=== PATIENT | female | born 1990 | race Caucasian/White ===

== ENCOUNTER 2018-07-22 19:24 | Inpatient (IN) | payer OTHER ==
[~2018-07-22] VITALS: Ht 165.1 cm; Wt 59.3 kg
[~2018-07-22 19:24] MED LIST: IBUP-1222 PO; OXYC-302 PO; PNV1TABL47 PO
[2018-07-22] MEDS ORDERED: SODIUM CHLORIDE 0.9% 1,000ML IVBOLUS ONE ×2 (20:00→21:00)
[2018-07-22 20:15] LABS: BASOPHILS # (AUTO) 0.06 x10^3/uL (0-0.1); BASOPHILS % (AUTO) 0 % (0-1); EOSINOPHILS % (AUTO) 0 % (1-7); LYMPHOCYTES # (AUTO) 1.75 x10^3/uL (1-3.4); LYMPHOCYTES % (AUTO) 10 % (22-44); MD NO; MEAN CORPUSCULAR HEMOGLOBIN 28.4 pg (27.0-34.8); MEAN CORPUSCULAR HGB CONC 34.2 g/dL (32.4-35.8); MEAN PLATELET VOLUME 9.2 fL (7.4-10.4); MONOCYTES # (AUTO) 0.96 x10^3/uL (0.2-0.8); MONOCYTES % (AUTO) 5 % (2-9); NEUTROPHILS # (AUTO) 14.98 x10^3/uL (1.8-6.8); NEUTROPHILS % (AUTO) 84 % (42-75); PLATELET COUNT 271 x10^3/uL (130-400); RED BLOOD COUNT 5.69 x10^6/uL (3.82-5.3); RED CELL DISTRIBUTION WIDTH 12.9 % (9.6-15.2)
[2018-07-22 20:21] LABS: ANION GAP 7 mmol/L (5-15); CALCIUM 9.3 mg/dL (8.5-10.1); CHLORIDE 102 mmol/L (98-107); CREATININE 0.61 mg/dL (0.55-1.02)
[2018-07-22 20:31] LABS: THYROID STIMULATING HORMONE < 0.005 mIU/L (0.358-3.740)
[2018-07-22 20:44] LABS: AMPHETAMINE SCREEN, URINE Negative (Negative); BARBITURATE SCREEN, URINE Negative (Negative); BENZODIAZEPINE SCREEN, URINE Negative (Negative); CANNABINOID SCREEN, URINE Negative (Negative); COCAINE SCREEN, URINE Negative (Negative); METHADONE SCREEN, URINE Negative (Negative); OPIATE SCREEN, URINE Negative (Negative)
[2018-07-22 20:48] LABS: MICROSCOPIC INDICATED
[2018-07-22] MEDS ORDERED: ACETAMINOPHEN 500 MG TABLET ONE (20:58)
[2018-07-22] MEDS ORDERED: ACETAMINOPHEN 500 MG TABLET PO ONE (21:00)
[2018-07-22] MEDS ORDERED: OMNIPAQUE 350 MG/ML, 100ML BOTTLE ONE (21:04)
[2018-07-22] MEDS ORDERED: METOPROLOL 1 MG/ML, 5ML IVPush ONE (21:30)
[2018-07-22] MEDS ORDERED: PROPYLTHIOURACIL 50 MG TABLET PO ONE (21:30)
[2018-07-22] MEDS ORDERED: CEFTRIAXONE 1,000 MG in SODIUM CHLORIDE 0.9% 50 ML IV ONE (21:30)
[2018-07-22] MEDS ORDERED: METOPROLOL TARTRATE 50 MG TABLET PO ONE (21:30)
[2018-07-22 21:43] LABS: CULTURE INDICATED? YES
[2018-07-22] MEDS ORDERED: CEFTRIAXONE PMX 1GM/50ML 50 ML ONE (21:43)
[2018-07-22] MEDS ORDERED: METOPROLOL TARTRATE 25 MG TABLET ONE (21:43)
[2018-07-22] MEDS ORDERED: METOPROLOL 1 MG/ML, 5ML ONE (21:44)
[2018-07-22 21:53] LABS: T4 (THYROXINE) 38.5 mcg/dL (4.8-13.9)
[2018-07-22] MEDS ORDERED: HYDROCORTISONE 100 MG INJ. IVPush ONE (22:00)
[2018-07-22] MEDS ORDERED: CEFTRIAXONE PMX 1GM/50ML 50 ML IV SCH (22:00)
[2018-07-22] MEDS ORDERED: POLYETHYLENE GLYCOL 17 GM PACKET PO PRN (22:30)
[2018-07-22] MEDS ORDERED: morphine SULFATE 10 MG/ML, 1ML IVPush PRN (22:30)
[2018-07-22] MEDS ORDERED: DOCUSATE 100 MG CAPSULE PO PRN (22:30)
[2018-07-22] MEDS ORDERED: ONDANSETRON 2MG/ML, 2ML IVPush PRN (22:30)
[2018-07-22] MEDS: PROPYLTHIOURACIL 50 MG TABLET PO SCH (23:06)
[2018-07-22 23:18] VITALS: BP 121/75
[2018-07-22] MEDS: NS + 20MEQ KCL 1,000 ML IV SCH (23:32)
[2018-07-23 03:00] VITALS: BP 107/64
[2018-07-23 04:27] VITALS: BP 117/70
[2018-07-23] MEDS: PROPYLTHIOURACIL 50 MG TABLET PO SCH ×4 (04:44→22:26)
[2018-07-23 05:48] LABS: BASOPHILS # (AUTO) 0.03 x10^3/uL (0-0.1); BASOPHILS % (AUTO) 0 % (0-1); EOSINOPHILS % (AUTO) 0 % (1-7); LYMPHOCYTES # (AUTO) 2.21 x10^3/uL (1-3.4); LYMPHOCYTES % (AUTO) 19 % (22-44); MD NO; MEAN CORPUSCULAR HEMOGLOBIN 28.4 pg (27.0-34.8); MEAN CORPUSCULAR HGB CONC 34.2 g/dL (32.4-35.8); MEAN CORPUSCULAR VOLUME 82.9 fL (80-100); MEAN PLATELET VOLUME 9.3 fL (7.4-10.4); MONOCYTES # (AUTO) 0.59 x10^3/uL (0.2-0.8); MONOCYTES % (AUTO) 5 % (2-9); NEUTROPHILS # (AUTO) 8.81 x10^3/uL (1.8-6.8); NEUTROPHILS % (AUTO) 76 % (42-75); PLATELET COUNT 224 x10^3/uL (130-400); RED BLOOD COUNT 4.69 x10^6/uL (3.82-5.3); RED CELL DISTRIBUTION WIDTH 13.2 % (9.6-15.2)
[2018-07-23 05:53] LABS: ANION GAP 8 mmol/L (5-15); CALCIUM 8.6 mg/dL (8.5-10.1); CHLORIDE 114 mmol/L (98-107)
[2018-07-23 07:10] VITALS: BP 125/71
[2018-07-23] MEDS ORDERED: METOPROLOL TARTRATE 25 MG TABLET PO SCH (09:00)
[2018-07-23 09:04] LABS: FREE T4 (FREE THYROXINE) 5.13 ng/dL (0.76-1.46)
[2018-07-23 09:05] LABS: THYROID STIMULATING HORMONE < 0.005 mIU/L (0.358-3.740)
[2018-07-23] MEDS: ACETAMINOPHEN 325 MG TABLET PO PRN ×2 (09:34→23:07)
[2018-07-23] MEDS: PROPRANOLOL 60 MG CAP.SA.24H PO SCH (12:42)
[2018-07-23] MEDS: HYDROCORTISONE 100 MG INJ. IVPush SCH ×2 (12:42→20:44)
[2018-07-23 12:56] VITALS: BP 116/71
[2018-07-23 13:03] LABS: ALANINE AMINOTRANSFERASE 24 U/L (12-78); ALBUMIN 3.1 g/dL (3.4-5.0); ANION GAP 7 mmol/L (5-15); BILIRUBIN, DIRECT 0.2 mg/dL (0.1-0.2); CALCIUM 8.8 mg/dL (8.5-10.1); CHLORIDE 113 mmol/L (98-107); CREATININE 0.37 mg/dL (0.55-1.02)
[2018-07-23 13:05] LABS: ALKALINE PHOSPHATASE 151 U/L (45-117); BILIRUBIN,INDIRECT 0.6 mg/dL (0.0-2.0); BILIRUBIN,TOTAL 0.8 mg/dL (0.2-1.0); TOTAL PROTEIN 6.8 g/dL (6.4-8.2)
[2018-07-23] MEDS: NS + 20MEQ KCL 1,000 ML IV SCH (16:15)
[2018-07-23 18:55] VITALS: BP 147/93
[2018-07-23] MEDS: CEFTRIAXONE 1,000 MG in SODIUM CHLORIDE 0.9% 50 ML IV SCH (20:44)
[2018-07-24 00:46] VITALS: BP 138/82
[2018-07-24 04:55] LABS: BASOPHILS # (AUTO) 0.03 x10^3/uL (0-0.1); BASOPHILS % (AUTO) 0 % (0-1); EOSINOPHILS # (AUTO) 0.16 x10^3/uL (0-0.4); EOSINOPHILS % (AUTO) 2 % (1-7); LYMPHOCYTES # (AUTO) 3.71 x10^3/uL (1-3.4); LYMPHOCYTES % (AUTO) 41 % (22-44); MD NO; MEAN CORPUSCULAR HEMOGLOBIN 28.4 pg (27.0-34.8); MEAN CORPUSCULAR HGB CONC 33.9 g/dL (32.4-35.8); MEAN CORPUSCULAR VOLUME 83.7 fL (80-100); MONOCYTES # (AUTO) 0.85 x10^3/uL (0.2-0.8); MONOCYTES % (AUTO) 9 % (2-9); NEUTROPHILS # (AUTO) 4.32 x10^3/uL (1.8-6.8); NEUTROPHILS % (AUTO) 48 % (42-75); PLATELET COUNT 229 x10^3/uL (130-400); RED BLOOD COUNT 4.67 x10^6/uL (3.82-5.3); RED CELL DISTRIBUTION WIDTH 12.9 % (9.6-15.2)
[2018-07-24 05:25] LABS: HCT (SEDRATE) 38.9 % (34.6-47.8)
[2018-07-24] MEDS: HYDROCORTISONE 100 MG INJ. IVPush SCH ×3 (05:33→23:34)
[2018-07-24] MEDS: PROPYLTHIOURACIL 50 MG TABLET PO SCH ×3 (05:34→20:16)
[2018-07-24 06:53] VITALS: BP 146/92
[2018-07-24] MEDS ORDERED: BUPIVACAINE/PF-EPI 0.5% 1:200K ONE (07:05)
[2018-07-24] MEDS: PROPRANOLOL 60 MG CAP.SA.24H PO SCH (09:03)
[2018-07-24] MEDS ORDERED: SCOPOLAMINE PATCH, 1.5MG PATCH.TD72 TD ONE (09:30)
[2018-07-24] MEDS ORDERED: GABAPENTIN 300 MG CAPSULE PO ONE (09:30)
[2018-07-24] MEDS ORDERED: ONDANSETRON ODT 8 MG PO ONE (09:30)
[2018-07-24] MEDS ORDERED: OxyconTIN ER 20 MG TAB.ER PO ONE (09:30)
[2018-07-24] MEDS ORDERED: ACETAMINOPHEN 500 MG TABLET PO ONE (09:30)
[2018-07-24] MEDS ORDERED: MIDAZOLAM 1 MG/ML, 2ML ONE ×2 (09:45→12:05)
[2018-07-24] MEDS ORDERED: FENTANYL PF 100 MCG/2ML ONE ×3 (09:45→11:55)
[2018-07-24] MEDS ORDERED: PROPOFOL 10 MG/ML, 20ML ONE (09:46)
[2018-07-24] MEDS ORDERED: CEFAZOLIN 1,000 MG ONE ×2 (09:47)
[2018-07-24] MEDS ORDERED: WATER-INJECTION,STERILE 10 ML IV ONE (09:47)
[2018-07-24] MEDS ORDERED: ROCURONIUM 10MG/ML,5ML ONE (09:48)
[2018-07-24] MEDS ORDERED: DEXAMETHASONE 4 MG/ML, 1ML ONE ×2 (09:49)
[2018-07-24] MEDS ORDERED: ONDANSETRON 2MG/ML, 2ML ONE (09:49)
[2018-07-24] MEDS ORDERED: SUGAMMADEX 200 MG/2 ML IVPush ONE (10:34)
[2018-07-24 10:56] LABS: HCG UR SG <= 1.005 (1.003-1.030)
[2018-07-24] MEDS ORDERED: HYDROmorphone 1 MG/ML, 1ML IV PRN (11:00)
[2018-07-24] MEDS ORDERED: ONDANSETRON ODT 8 MG PO PRN (11:00)
[2018-07-24] MEDS ORDERED: PROMETHAZINE 12.5 MG SUPP PR PRN (11:00)
[2018-07-24] MEDS ORDERED: MORPHINE SULFATE 4 MG/ML, 1ML IVPush PRN (11:00)
[2018-07-24] MEDS ORDERED: PROMETHAZINE 25 MG/ML, 1ML IV PRN (11:00)
[2018-07-24] MEDS ORDERED: LABETALOL 5MG/ML, 20ML IV PRN (11:00)
[2018-07-24] MEDS ORDERED: hydrALAzine 20 MG/ML, 1ML IV PRN (11:00)
[2018-07-24] MEDS ORDERED: OXYcodone 5 MG/5 ML ORAL.SOL UDC PO PRN (11:00)
[2018-07-24] MEDS ORDERED: MEPERIDINE/PF 25MG/0.5ML IVPush PRN (11:00)
[2018-07-24] MEDS ORDERED: ONDANSETRON 2MG/ML, 2ML IV PRN (11:00)
[2018-07-24] MEDS ORDERED: PROMETHAZINE 25 MG SUPP PR PRN (11:00)
[2018-07-24] MEDS: FENTANYL PF 100 MCG/2ML IV PRN ×2 (11:58→12:31)
[2018-07-24] MEDS ORDERED: morphine SULFATE 10 MG/ML, 1ML IVPush PRN (12:00)
[2018-07-24] MEDS ORDERED: HYDROcodone/APAP 5/325 TABLET PO PRN (12:00)
[2018-07-24] MEDS ORDERED: MIDAZOLAM 1 MG/ML, 2ML IVPush PRN (12:30)
[2018-07-24] MEDS ORDERED: MORPHINE SULFATE 4 MG/ML, 1ML ONE (12:47)
[2018-07-24 14:00] VITALS: BP 134/67
[2018-07-24] MEDS: HYDROcodone/APAP 5/325 TABLET PO PRN (18:11)
[2018-07-24 19:20] VITALS: BP 137/82
[2018-07-24] MEDS: CEFTRIAXONE 1,000 MG in SODIUM CHLORIDE 0.9% 50 ML IV SCH (20:16)
[2018-07-24 21:48] VITALS: BP 126/70
[2018-07-25 00:53] VITALS: BP 127/65
[2018-07-25] MEDS: HYDROcodone/APAP 5/325 TABLET PO PRN ×4 (02:14→21:26)
[2018-07-25] MEDS: PROPYLTHIOURACIL 50 MG TABLET PO SCH ×4 (02:14→20:39)
[2018-07-25 05:32] LABS: BASOPHILS # (AUTO) 0.02 x10^3/uL (0-0.1); BASOPHILS % (AUTO) 0 % (0-1); EOSINOPHILS % (AUTO) 0 % (1-7); LYMPHOCYTES % (AUTO) 15 % (22-44); MD NO; MEAN CORPUSCULAR HEMOGLOBIN 28.4 pg (27.0-34.8); MEAN CORPUSCULAR HGB CONC 34.7 g/dL (32.4-35.8); MEAN CORPUSCULAR VOLUME 81.9 fL (80-100); MEAN PLATELET VOLUME 8.8 fL (7.4-10.4); MONOCYTES % (AUTO) 5 % (2-9); NEUTROPHILS % (AUTO) 80 % (42-75); PLATELET COUNT 262 x10^3/uL (130-400); RED BLOOD COUNT 4.63 x10^6/uL (3.82-5.3); RED CELL DISTRIBUTION WIDTH 12.6 % (9.6-15.2)
[2018-07-25 05:37] LABS: ANION GAP 7 mmol/L (5-15); CALCIUM 8.5 mg/dL (8.5-10.1); CHLORIDE 108 mmol/L (98-107)
[2018-07-25 05:38] LABS: CREATININE 0.53 mg/dL (0.55-1.02)
[2018-07-25 07:32] VITALS: BP 118/69
[2018-07-25] MEDS: HYDROCORTISONE 100 MG INJ. IVPush SCH ×2 (07:38→20:39)
[2018-07-25] MEDS: PROPRANOLOL 60 MG CAP.SA.24H PO SCH (07:39)
[2018-07-25 14:03] VITALS: BP 139/73
[2018-07-25 19:20] VITALS: BP 132/73
[2018-07-25] MEDS: CEFTRIAXONE 1,000 MG in SODIUM CHLORIDE 0.9% 50 ML IV SCH (20:38)
[2018-07-26 03:55] VITALS: BP 130/74
[2018-07-26] MEDS: PROPYLTHIOURACIL 50 MG TABLET PO SCH ×4 (03:56→21:58)
[2018-07-26 05:56] LABS: BASOPHILS # (AUTO) 0.06 x10^3/uL (0-0.1); BASOPHILS % (AUTO) 1 % (0-1); EOSINOPHILS # (AUTO) 0.07 x10^3/uL (0-0.4); EOSINOPHILS % (AUTO) 1 % (1-7); LYMPHOCYTES # (AUTO) 3.86 x10^3/uL (1-3.4); LYMPHOCYTES % (AUTO) 41 % (22-44); MD NO; MEAN CORPUSCULAR HEMOGLOBIN 28.3 pg (27.0-34.8); MEAN CORPUSCULAR VOLUME 83.1 fL (80-100); MEAN PLATELET VOLUME 8.7 fL (7.4-10.4); MONOCYTES # (AUTO) 0.75 x10^3/uL (0.2-0.8); MONOCYTES % (AUTO) 8 % (2-9); NEUTROPHILS # (AUTO) 4.76 x10^3/uL (1.8-6.8); NEUTROPHILS % (AUTO) 50 % (42-75); PLATELET COUNT 255 x10^3/uL (130-400); RED BLOOD COUNT 4.77 x10^6/uL (3.82-5.3); RED CELL DISTRIBUTION WIDTH 12.6 % (9.6-15.2)
[2018-07-26 06:10] LABS: ANION GAP 9 mmol/L (5-15); CALCIUM 8.7 mg/dL (8.5-10.1); CHLORIDE 107 mmol/L (98-107); CREATININE 0.48 mg/dL (0.55-1.02)
[2018-07-26 08:59] VITALS: BP 139/80
[2018-07-26] MEDS: PROPRANOLOL 60 MG CAP.SA.24H PO SCH (09:02)
[2018-07-26] MEDS: HYDROCORTISONE 100 MG INJ. IVPush SCH ×2 (09:02→20:33)
[2018-07-26 15:11] VITALS: BP 144/80
[2018-07-26] MEDS: ACETAMINOPHEN 325 MG TABLET PO PRN (18:04)
[2018-07-26 19:45] VITALS: BP 148/68
[2018-07-26] MEDS: CEFTRIAXONE 1,000 MG in SODIUM CHLORIDE 0.9% 50 ML IV SCH (20:33)
[2018-07-27 00:34] VITALS: BP 148/75
[2018-07-27] MEDS: PROPYLTHIOURACIL 50 MG TABLET PO SCH ×4 (04:12→20:44)
[2018-07-27 05:13] LABS: BASOPHILS # (AUTO) 0.03 x10^3/uL (0-0.1); BASOPHILS % (AUTO) 0 % (0-1); EOSINOPHILS # (AUTO) 0.12 x10^3/uL (0-0.4); EOSINOPHILS % (AUTO) 1 % (1-7); LYMPHOCYTES # (AUTO) 3.85 x10^3/uL (1-3.4); LYMPHOCYTES % (AUTO) 35 % (22-44); MD NO; MEAN CORPUSCULAR HEMOGLOBIN 28.1 pg (27.0-34.8); MEAN CORPUSCULAR HGB CONC 34.2 g/dL (32.4-35.8); MEAN CORPUSCULAR VOLUME 82.1 fL (80-100); MEAN PLATELET VOLUME 8.6 fL (7.4-10.4); MONOCYTES # (AUTO) 0.99 x10^3/uL (0.2-0.8); MONOCYTES % (AUTO) 9 % (2-9); NEUTROPHILS # (AUTO) 6.03 x10^3/uL (1.8-6.8); NEUTROPHILS % (AUTO) 55 % (42-75); PLATELET COUNT 270 x10^3/uL (130-400); RED BLOOD COUNT 4.68 x10^6/uL (3.82-5.3); RED CELL DISTRIBUTION WIDTH 12.5 % (9.6-15.2)
[2018-07-27 05:21] LABS: ANION GAP 8 mmol/L (5-15); CALCIUM 8.5 mg/dL (8.5-10.1); CHLORIDE 109 mmol/L (98-107); CREATININE 0.44 mg/dL (0.55-1.02)
[2018-07-27 07:07] VITALS: BP 121/70
[2018-07-27] MEDS: PROPRANOLOL 60 MG CAP.SA.24H PO SCH (08:59)
[2018-07-27] MEDS: HYDROCORTISONE 100 MG INJ. IVPush SCH ×2 (09:00→20:43)
[2018-07-27 12:12] VITALS: BP 124/83
[2018-07-27 18:56] VITALS: BP 121/74
[2018-07-27] MEDS: CEFTRIAXONE 1,000 MG in SODIUM CHLORIDE 0.9% 50 ML IV SCH (20:43)
[2018-07-27] MEDS: HYDROcodone/APAP 5/325 TABLET PO PRN (20:44)
[2018-07-28 00:43] VITALS: BP 152/72
[2018-07-28] MEDS: PROPYLTHIOURACIL 50 MG TABLET PO SCH ×5 (04:06→23:45)
[2018-07-28 05:55] LABS: ANION GAP 3 mmol/L (5-15); CALCIUM 8.8 mg/dL (8.5-10.1); CHLORIDE 108 mmol/L (98-107); CREATININE 0.44 mg/dL (0.55-1.02)
[2018-07-28 05:56] LABS: BASOPHILS # (AUTO) 0.06 x10^3/uL (0-0.1); BASOPHILS % (AUTO) 1 % (0-1); EOSINOPHILS % (AUTO) 1 % (1-7); LYMPHOCYTES # (AUTO) 4.72 x10^3/uL (1-3.4); LYMPHOCYTES % (AUTO) 35 % (22-44); MD NO; MEAN CORPUSCULAR HEMOGLOBIN 28.3 pg (27.0-34.8); MEAN CORPUSCULAR HGB CONC 34.4 g/dL (32.4-35.8); MEAN CORPUSCULAR VOLUME 82.3 fL (80-100); MEAN PLATELET VOLUME 8.8 fL (7.4-10.4); MONOCYTES # (AUTO) 0.86 x10^3/uL (0.2-0.8); MONOCYTES % (AUTO) 6 % (2-9); NEUTROPHILS # (AUTO) 7.81 x10^3/uL (1.8-6.8); NEUTROPHILS % (AUTO) 58 % (42-75); PLATELET COUNT 292 x10^3/uL (130-400); RED BLOOD COUNT 4.87 x10^6/uL (3.82-5.3); RED CELL DISTRIBUTION WIDTH 12.6 % (9.6-15.2)
[2018-07-28 06:40] VITALS: BP 125/83
[2018-07-28] MEDS: HYDROCORTISONE 100 MG INJ. IVPush SCH ×2 (09:03→20:22)
[2018-07-28] MEDS: PROPRANOLOL 60 MG CAP.SA.24H PO SCH (09:03)
[2018-07-28 17:34] VITALS: BP 158/86
[2018-07-28 19:05] VITALS: BP 120/74
[2018-07-28] MEDS: CEFTRIAXONE 1,000 MG in SODIUM CHLORIDE 0.9% 50 ML IV SCH (20:22)
[2018-07-29 00:02] VITALS: BP 123/71
[2018-07-29] MEDS: PROPYLTHIOURACIL 50 MG TABLET PO SCH ×4 (05:28→21:53)
[2018-07-29 05:33] LABS: BASOPHILS # (AUTO) 0.04 x10^3/uL (0-0.1); BASOPHILS % (AUTO) 0 % (0-1); EOSINOPHILS # (AUTO) 0.25 x10^3/uL (0-0.4); EOSINOPHILS % (AUTO) 2 % (1-7); LYMPHOCYTES % (AUTO) 26 % (22-44); MD NO; MEAN CORPUSCULAR HEMOGLOBIN 28.4 pg (27.0-34.8); MEAN CORPUSCULAR HGB CONC 34.4 g/dL (32.4-35.8); MEAN CORPUSCULAR VOLUME 82.5 fL (80-100); MEAN PLATELET VOLUME 8.5 fL (7.4-10.4); MONOCYTES # (AUTO) 0.91 x10^3/uL (0.2-0.8); MONOCYTES % (AUTO) 6 % (2-9); NEUTROPHILS # (AUTO) 10.74 x10^3/uL (1.8-6.8); NEUTROPHILS % (AUTO) 67 % (42-75); PLATELET COUNT 325 x10^3/uL (130-400); RED BLOOD COUNT 5.08 x10^6/uL (3.82-5.3); RED CELL DISTRIBUTION WIDTH 13.2 % (9.6-15.2)
[2018-07-29 05:41] LABS: ANION GAP 7 mmol/L (5-15); CALCIUM 8.7 mg/dL (8.5-10.1); CHLORIDE 106 mmol/L (98-107); CREATININE 0.61 mg/dL (0.55-1.02)
[2018-07-29 06:40] VITALS: BP_SYST 128; BP_SYST 167; BP_DIAS 60; BP_DIAS 79
[2018-07-29] MEDS: PROPRANOLOL 60 MG CAP.SA.24H PO SCH (08:55)
[2018-07-29] MEDS: HYDROCORTISONE 100 MG INJ. IVPush SCH ×2 (08:56→21:53)
[2018-07-29 09:30] LABS: FREE T4 (FREE THYROXINE) 2.35 ng/dL (0.76-1.46)
[2018-07-29 13:30] VITALS: BP 126/80
[2018-07-29 19:47] VITALS: BP 127/77
[2018-07-29 21:15] LABS: CLOSTRIDIUM DIFFICILE ANTIGEN NEGATIVE; CLOSTRIDIUM DIFFICILE TOXIN NEGATIVE (Negative)
[2018-07-29] MEDS: CEFTRIAXONE 1,000 MG in SODIUM CHLORIDE 0.9% 50 ML IV SCH (21:52)
[2018-07-30 00:27] VITALS: BP 143/71
[2018-07-30] MEDS ORDERED: TEMAZEPAM 15 MG CAPSULE PO PRN (01:00)
[2018-07-30 05:55] LABS: BASOPHILS # (AUTO) 0.07 x10^3/uL (0-0.1); BASOPHILS % (AUTO) 0 % (0-1); EOSINOPHILS # (AUTO) 0.25 x10^3/uL (0-0.4); EOSINOPHILS % (AUTO) 2 % (1-7); LYMPHOCYTES # (AUTO) 4.15 x10^3/uL (1-3.4); LYMPHOCYTES % (AUTO) 24 % (22-44); MD NO; MEAN CORPUSCULAR HEMOGLOBIN 28.1 pg (27.0-34.8); MEAN CORPUSCULAR VOLUME 82.9 fL (80-100); MEAN PLATELET VOLUME 8.4 fL (7.4-10.4); MONOCYTES # (AUTO) 0.94 x10^3/uL (0.2-0.8); MONOCYTES % (AUTO) 5 % (2-9); NEUTROPHILS # (AUTO) 11.95 x10^3/uL (1.8-6.8); NEUTROPHILS % (AUTO) 69 % (42-75); PLATELET COUNT 340 x10^3/uL (130-400); RED BLOOD COUNT 5.32 x10^6/uL (3.82-5.3); RED CELL DISTRIBUTION WIDTH 12.9 % (9.6-15.2)
[2018-07-30 06:08] LABS: ALBUMIN 3.3 g/dL (3.4-5.0); ANION GAP 4 mmol/L (5-15); CALCIUM 9.2 mg/dL (8.5-10.1); CHLORIDE 105 mmol/L (98-107)
[2018-07-30 06:12] LABS: ALANINE AMINOTRANSFERASE 50 U/L (12-78); ALKALINE PHOSPHATASE 198 U/L (45-117); BILIRUBIN,TOTAL 0.5 mg/dL (0.2-1.0); CREATININE 0.66 mg/dL (0.55-1.02); TOTAL PROTEIN 7.4 g/dL (6.4-8.2)
[2018-07-30 07:02] VITALS: BP 127/73
[2018-07-30] MEDS: PROPYLTHIOURACIL 50 MG TABLET PO SCH (08:05)
[2018-07-30] MEDS: PROPRANOLOL 60 MG CAP.SA.24H PO SCH (08:05)
[2018-07-30] MEDS: HYDROCORTISONE 100 MG INJ. IVPush SCH (08:06)
[2018-07-30 13:28] VITALS: BP 126/77
[2018-07-30] MEDS: METHIMAZOLE 5 MG TAB PO SCH ×2 (16:14→21:23)
[2018-07-30 21:17] VITALS: BP 149/76
[2018-07-31 05:48] VITALS: BP 114/59
[2018-07-31 06:22] LABS: MEAN CORPUSCULAR HEMOGLOBIN 28.2 pg (27.0-34.8); MEAN CORPUSCULAR HGB CONC 34.3 g/dL (32.4-35.8); MEAN CORPUSCULAR VOLUME 82.2 fL (80-100); MEAN PLATELET VOLUME 8.3 fL (7.4-10.4); PLATELET COUNT 326 x10^3/uL (130-400); RED BLOOD COUNT 5.16 x10^6/uL (3.82-5.3)
[2018-07-31 06:32] LABS: CHLORIDE 104 mmol/L (98-107)
[2018-07-31 06:42] LABS: BASOPHILS # (AUTO) 0.04 x10^3/uL (0-0.1); BASOPHILS % (AUTO) 0 % (0-1); EOSINOPHILS # (AUTO) 0.57 x10^3/uL (0-0.4); EOSINOPHILS % (AUTO) 4 % (1-7); LYMPHOCYTES # (AUTO) 5.94 x10^3/uL (1-3.4); LYMPHOCYTES % (AUTO) 36 % (22-44); MD SCAN; MONOCYTES # (AUTO) 1.14 x10^3/uL (0.2-0.8); MONOCYTES % (AUTO) 7 % (2-9); NEUTROPHILS # (AUTO) 8.69 x10^3/uL (1.8-6.8); NEUTROPHILS % (AUTO) 53 % (42-75)
[2018-07-31 06:47] LABS: ALANINE AMINOTRANSFERASE 47 U/L (12-78); ALBUMIN 3.1 g/dL (3.4-5.0); ALKALINE PHOSPHATASE 185 U/L (45-117); ANION GAP 9 mmol/L (5-15); BILIRUBIN,TOTAL 0.9 mg/dL (0.2-1.0); CALCIUM 8.7 mg/dL (8.5-10.1); CREATININE 0.55 mg/dL (0.55-1.02)
[2018-07-31 07:00] VITALS: BP 115/72
[2018-07-31] MEDS ORDERED: PRED10TA PO (08:32)
[2018-07-31] MEDS ORDERED: PROP60CA PO (08:32)
[2018-07-31] MEDS ORDERED: METH5TAB6 PO (08:32)
[2018-07-31] MEDS: PROPRANOLOL 60 MG CAP.SA.24H PO SCH (10:14)
[2018-07-31] MEDS: METHIMAZOLE 5 MG TAB PO SCH (10:14)
== END 2018-07-31 11:09 | disposition home or self-care (01) | DRG 872 ==
LOC: SUATTDRO 21:47 → ED 22:22 → 5SO 22:40 → DCLOUNGE 07-31 10:45
PROVIDERS: ADMIT Family Medicine; ATTEND Family Medicine
PROC: 0WBC4ZX Excision of Mediastinum, Percutaneous Endoscopic Approach, Diagnostic (ICD-10-PCS; principal; 2018-07-24 10:30)
DX: A41.9 Sepsis, unspecified organism (principal); E87.1 Hypo-osmolality and hyponatremia; N39.0 Urinary tract infection, site not specified; E05.90 Thyrotoxicosis, unspecified without thyrotoxic crisis or storm; E32.0 Persistent hyperplasia of thymus; Z88.8 Allergy status to other drugs, medicaments and biological substances; J02.9 Acute pharyngitis, unspecified
CPT/HCPCS: 36415; 71045; 71275; 76536; 80048; 80053; 80076; 80307; 81001; 81025; 82040; 83520; 83735; 84100; 84145; 84436; 84439; 84442; 84443; 84481; 85025; 85379; 85651; 86038; 86140; 86225; 86376; 86800; 87081; 87086; 87147; 87324; 87880; 88305; 88341; 88342; 93005; 96361; 96365; 96375; G0378; J0690; J0696; J1100; J2250; J2405; J2704; J3010; J3480; Q0162; Q9967; G0461; J1720; J7030

== ENCOUNTER 2020-01-28 21:07 | Emergency (ER) | payer OTHER ==
[~2020-01-28] VITALS: Ht 165.1 cm; Wt 55.0 kg
[~2020-01-28 21:07] MED LIST changes: +HYDR-3237 PO; +METH5TAB6 PO; +PRED10TA PO; +PROP60CA PO; +SENN-52 PO
[2020-01-28 21:15] VITALS: BP 148/73
[2020-01-28] MEDS ORDERED: METH5TAB6 PO (21:50)
--- NOTE | 2020-01-28 22:25 | NUR ---
Crutches provided. [employer] technician at bedside for rocker shoe and tammy taping.
--- NOTE | 2020-01-28 22:56 | NUR ---
At time of d/c, pt alert oriented and ambulatory with crutches. Education given on home care, follow-up, OTC meds and S/sx to return. Pt VU. Pt ambulated out of ER.
== END 2020-01-28 22:59 | disposition home or self-care (01) ==
LOC: ED 22:27
DX: S92.514A Nondisplaced fracture of proximal phalanx of right lesser toe(s), initial encounter for closed fracture (principal); Z86.39 Personal history of other endocrine, nutritional and metabolic disease; W01.0XXA Fall on same level from slipping, tripping and stumbling without subsequent striking against object, initial encounter; Y93.89 Activity, other specified; Y92.009 Unspecified place in unspecified non-institutional (private) residence as the place of occurrence of the external cause; Y99.8 Other external cause status
CPT/HCPCS: 99283